=== PATIENT | female | born 1995 | race Caucasian/White ===

== ENCOUNTER 2019-04-19 12:18 | Emergency (ER) | payer BC ==
[~2019-04-19] VITALS: Ht 172.7 cm; Wt 74.8 kg
[~2019-04-19 12:18] MED LIST: BLISOVI FE 1-21 EACH PO; ONDANSETRON HCL4 M2 PO
[2019-04-19 12:19] VITALS: BP 113/68
[2019-04-19] MEDS ORDERED: CLONAZEPAM 0.50.5 M1 PO (13:06)
[2019-04-19] MEDS ORDERED: BRINTELLIX5 MG PO (13:07)
[2019-04-19 14:36] LABS: ABSOLUTE NEUTROPHILS 7.4 thou/uL (1.4-8.2); BASOPHILS 0.2 % (0.0-2.0); EOSINOPHILS 2.1 % (0.0-3.0); HEMATOCRIT 42.2 % (37.0-47.0); HEMOGLOBIN 14.3 gm/dL (12.0-15.0); MCH 28.5 pg (26.0-34.0); MCHC 33.9 g/dL (28.0-37.0); MCV 84.1 fL (80.0-100.0); MONOCYTES 10.2 % (1.0-8.0); PLATELET COUNT 141 thou/uL (150-400); POLYS 79.5 % (36.0-66.0); RBC 5.01 mil/uL (4.20-5.00); RDW 12.8 % (10.5-14.5); WBC 9.3 thou/uL (4.0-11.0)
[2019-04-19 14:39] LABS: CREATININE 0.7 mg/dL (0.6-1.0); POTASSIUM 3.6 mmol/L (3.5-5.1)
[2019-04-19] MEDS ORDERED: HYDROXYZINE HCL25 M1 PO (14:48)
[2019-04-19] MEDS ORDERED: NAPROSYN500 MG PO (14:48)
== END 2019-04-19 15:05 | disposition home or self-care (01) ==
LOC: ER 12:18
PROVIDERS: Physician Assistant
DX: L30.9 Dermatitis, unspecified (principal); B34.9 Viral infection, unspecified